=== PATIENT | female | born 1990 | race Caucasian/White ===

== ENCOUNTER 2017-09-22 08:36 | Inpatient (IN) | payer MEDICAID, OTHER ==
[2017-09-22 10:29] VITALS: BMI 23.3
[2017-09-22] MEDS ORDERED: MAG HYDROX/AL HYDROX/SIMETH 30 ML CUP PO PRN (10:39)
[2017-09-22] MEDS ORDERED: ZIPRASIDONE 20 MG VIAL IM PRN (10:39)
[2017-09-22] MEDS ORDERED: ACETAMINOPHEN TAB 325 MG TAB PO PRN (10:39)
[2017-09-22] MEDS ORDERED: MAGNESIUM HYDROXIDE 2,400 MG/10 ML CUP PO PRN (10:39)
[2017-09-22] MEDS: SERTRALINE 100 MG TAB PO SCH (13:30)
[2017-09-22] MEDS: LORazepam 1 MG TAB PO PRN ×2 (13:31→13:46)
[2017-09-22] MEDS: ARIPiprazole 2 MG TAB PO SCH (13:46)
--- NOTE | 2017-09-22 13:56 | HP ---
HISTORY AND PHYSICAL DATE OF SERVICE: 09/22/2017 IDENTIFYING DATA: This patient is a 27-year-old female who was admitted to us from [facility] on a petition due to a recent suicide attempt. HISTORY OF PRESENT ILLNESS: The patient presents with a petition stating "I wanna . I cut my throat to . History of depression, noncompliance with treatment." The patient states that she cut her neck with a knife in front of her mother, brother and 10-year-old nephew. She felt overwhelmed and cut herself after she had taken 2 shots of vodka and snorted a Klonopin tablet. She has been feeling depressed and overwhelmed. She feels hopeless. She reports sleep has been stable with use of trazodone. Appetite has been stable. Energy level has been low. She states that she has been unable to hold a job because of transportation issues and she also feels overwhelmed when she works. She was involved in a relationship with a 19-year-old female for just a few weeks. The patient does identify herself as being homosexual. The 19-year-old female then met a male online and he came and picked her up. The patient is overwhelmed with the termination of that relationship. She describes having panic attacks when she goes out in public. She describes those as experiences where she feels short of breath, dizzy, sweating. She has visual changes and her heart is racing. She does not describe any excessive constant anxiety on a daily basis. She endorses no hypomanic or manic episode history. She is reporting no auditory or visual hallucinations or specific delusions. She resides with her mother and brother and states that there are no firearms at home. PAST PSYCHIATRIC HISTORY: This is the patient's third inpatient psychiatric admission. She had been to [facility]. She has been on this unit in January of 2016 under the care of Dr. Rai. She reports this is her first suicide attempt, but she does have a history of self- injurious behavior where she will poke her skin on her legs with a needle. She is currently prescribed Zoloft 50 mg daily, trazodone 100 mg at bedtime, Adderall [address] Pugh, her primary care physician. She has a history of being prescribed Wellbutrin, BuSpar and Prozac. She does not work with an outpatient therapist or psychiatrist. She states she has never followed up with one after her admissions. When she was here last in the mental health unit she did go to rehab, but there was no followup afterwards. PAST MEDICAL HISTORY: None reported. ALLERGIES: IBUPROFEN. CHEMICAL DEPENDENCY HISTORY: She reports using alcohol daily, having 1 to 2 drinks, marijuana is every other day. Cocaine she reports is too expensive to use regularly and she has not used that since February. She buys Klonopin off the street, but states that she uses it less than monthly. She has history of abusing Adderall. She states that she is not currently overusing her prescribed Adderall. She has been to inpatient chemical dependency treatment once after her admission here in 2016. She states her drugs of choice are equally Klonopin, marijuana, alcohol and cocaine. FAMILY PSYCHIATRIC HISTORY: None reported. Previous documentation suggests that her father had PTSD. He did in 2016 of a suspected overdose. FAMILY CHEMICAL DEPENDENCY HISTORY: Unclear. SOCIAL HISTORY: The patient is 27 years old. She is born and raised in [place]. She reports her childhood was good. She identifies herself as homosexual and is single. There was a recent relationship break-up as noted above. She has no children. She resides with her mother and brother. She has no income and is unemployed. No history of experience. She has a total of 3 half-brothers and 1 half-sister. She denies having any legal history. She denies any abuse history. MENTAL STATUS EXAM: The patient is a thin female, appearing her stated age. She is dressed in hospital attire. She has a laceration on the anterior aspect of her neck, across the midline which has approximately 3 sutures. 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 She reports a depressed mood. She feels overwhelmed. She feels hopeless. She is tearful throughout the session. She describes feelings of anxiety out in public. She is reporting no homicidal ideation, intent, or plan. She is endorsing no auditory or visual hallucinations or specific delusions. Thought process is linear. She demonstrates no tangential thinking, loose associations or flight of ideas. She does not appear hypomanic or manic. She demonstrates no verbal or physical aggressiveness. She demonstrates no abnormal involuntary movements. Insight and judgment are limited. She is oriented to person, place, and date. She is able to spell world backwards. STRENGTHS: Housing, willingness to receive voluntary treatment. WEAKNESSES: Unemployment, termination of recent relationship, intellect average. IMPRESSION: 1. Major depressive disorder, recurrent, severe, without psychosis with history of panic attacks, history of polysubstance use disorder including marijuana, Klonopin, cocaine and alcohol. 2. Rule out Cluster B traits. 3. Sutured laceration on her anterior neck across midline. PLAN: The patient has been admitted to the mental health unit. She is willing to sign in voluntarily. We reviewed her presenting symptoms and medication options. We decided to continue the Zoloft but we will titrate to 100 mg daily, trying to make it more efficacious. We will augment with Abilify 2 mg daily as she appears to be struggling with severe symptoms of depression. We discussed the potential benefits and risks of her medications and specifically Abilify including risk of weight gain, metabolic syndrome and movement disorder symptoms. She will continue on trazodone 100 mg at bedtime. We will monitor her vitals for any signs of withdrawal. Ativan is available if needed. She will be seen by the liner machine operator helper for routine history and physical exam. Social Work will meet with the patient to complete a psychosocial assessment. We will monitor her for safety and encourage her participation in the milieu. We will involve her family in treatment and discharge planning as she will allow. GRABIEL / JORDANA: [id number] /
[2017-09-22] MEDS: traZODone HCL 100 MG TAB PO SCH (20:16)
[2017-09-22] MEDS: BACITRACIN 500 UNIT/GM OINT 28.4 GM TUBE TOPICAL SCH (22:22)
[2017-09-22] MEDS: CEPHALEXIN 250 MG CAP PO SCH (22:22)
[2017-09-22] MEDS: NICOTINE 21MG/24HR PATCH TRANSDERM SCH ×2 (22:23→23:05)
--- NOTE | 2017-09-23 00:52 | CONS ---
CONSULTATION DATE OF CONSULTATION: September 22, 2017. REASON FOR CONSULTATION: Medical management requested by Dr. Palmer. CONSULTATION: This is a 27-year-old patient who was transferred to the psychiatry unit at [facility] from [facility] on a petition due to suicide attempt. The patient stated "I wanna , I cut my throat to ". The patient has a history of depression, noncompliant. Patient was in a relationship with an on journeyman lineman and the patient has trouble dealing with herself regarding her mendes orientation. She cut superficially in neck with a knife in front of her mother, brother and 10-year-old nephew. She was feeling overwhelmed and she had taken 2 shots of vodka and noted Klonopin. During my interview, she repeatedly cries. The patient has been tolerating a diet. The patient is not employed. She a couple of times quotes out of the Bible. REVIEW OF SYSTEM: Review of systems constitutional none. HEENT none. Respiratory none. Cardiovascular none. Gastrointestinal none. Genitourinary none. Musculoskeletal: None. Dermatological: There is dried up blood in the neck. Psychiatry as above. Neurological none. PAST MEDICAL HISTORY: Depression, anxiety, recreational drug use. SOCIAL HISTORY: Smokes a pack a day for 3 weeks and drinks beer about 3 times a week. Lives with mother and brother. Not employed. FAMILY HISTORY: Reviewed, noncontributory to presentation. SOCIAL HISTORY: Father probably had PTSD. HOME MEDICATIONS: 1. Dextroamphetamine 30 mg daily. 2. Zoloft 50 mg daily. 3. Desyrel 100 mg q.h.s. ALLERGIES: IBUPROFEN. EXAMINATION: Temp 97.8, pulse 74, respiratory 20, blood pressure 107/45, pulse ox . GENERAL APPEARANCE: Sitting up, anxious. Eyes: Pupils equal. Conjunctivae normal. HEENT external appearance of nose and ears normal. Oral cavity normal. Neck: The patient has a scar with some light dried up blood, crusted. Respiratory effort normal. Lungs are clear. Cardiovascular 1st and 2nd sounds normal. No edema. ABDOMEN: Soft, nontender. Liver and spleen not palpable. Lymphatics: No lymph nodes palpable in the neck and axillae. PSYCHIATRY: Alert and oriented x3. Mood and affect anxious appearing and tearful. INVESTIGATIONS: None from here. ASSESSMENT: 1. Incision superficial incision pricilla on the neck with dry crusted blood. We will use Bacitracin cream on it 3 times a day. 2. Chronic nicotine dependence. Patient is a cigarette smoker. 3. Recreational marijuana use. 4. Major depressive disorder, recurrent, severe, without psychosis. 5. History of panic attack. PLAN: At this point, we will use Keflex for a week, use also Bacitracin on the neck. Given a nicotine patch. I spoke to the patient. Patient should follow up with Dr. Pugh upon discharge. Thank you Dr. Tapia. MMAMANDOL / IJN: [id number] /
[2017-09-23 08:21] LABS: ALT 18 U/L (9-52); AST 16 U/L (14-36); Albumin 3.6 g/dL (3.5-5.0); Alkaline Phosphatase 58 U/L (38-126); Anion Gap 9 mmol/L; Blood Urea Nitrogen 14 mg/dL (7-17); Calcium 9.2 mg/dL (8.4-10.2); Carbon Dioxide 27 mmol/L (22-30); Chloride 104 mmol/L (98-107); Glucose 90 mg/dL (74-99); Sodium 140 mmol/L (137-145); Total Bilirubin 0.2 mg/dL (0.2-1.3); Total Protein 6.2 g/dL (6.3-8.2)
[2017-09-23] MEDS: BACITRACIN 500 UNIT/GM OINT 28.4 GM TUBE TOPICAL SCH ×2 (09:18→20:51)
[2017-09-23] MEDS: ARIPiprazole 2 MG TAB PO SCH (09:18)
[2017-09-23] MEDS: NICOTINE 21MG/24HR PATCH TRANSDERM SCH (09:19)
[2017-09-23] MEDS: CEPHALEXIN 250 MG CAP PO SCH ×3 (09:19→20:50)
[2017-09-23] MEDS: SERTRALINE 100 MG TAB PO SCH (09:20)
--- NOTE | 2017-09-23 10:14 | P.PN ---
Progress Note - Text Interval history: The patient is found in her room she follows me to an interview room. She states that she spoke with her mother via phone last night and was told she could not return there. The patient is more distraught as now she is homeless. She has no income and is asking about housing options. She has no questions regarding her medications we discussed those in detail again. We discussed that it is more therapeutic for her to attend groups today rather than staying in her dark room lying in bed. Mental status exam: The patient is alert she is dressed in her own clothing. She has a bandage on her anterior neck covering her laceration wound. Hygiene and grooming are adequate. She endorses a depressed mood she feels hopeless. She is briefly tearful during the session. She endorses no homicidal ideation she endorses no auditory or visual hallucinations or specific delusions she demonstrates no abnormal involuntary movements she demonstrates no verbal or physical aggressiveness. Insight and judgment impaired. She is oriented to person place and date. Other than the brief tearfulness she maintains a bland affect. Speech is fluent not very spontaneous she does provide answers to questions asked. Plan: The patient's will continue on her current medication. She is encouraged to stay out of her room during the day and participate in group. We will monitor her for safety. Vital signs reviewed.
[2017-09-23] MEDS: LORazepam 1 MG TAB PO PRN (14:22)
[2017-09-23] MEDS: traZODone HCL 100 MG TAB PO SCH (20:50)
[2017-09-24] MEDS: BACITRACIN 500 UNIT/GM OINT 28.4 GM TUBE TOPICAL SCH ×2 (09:00→20:17)
[2017-09-24] MEDS: NICOTINE 21MG/24HR PATCH TRANSDERM SCH (09:00)
[2017-09-24] MEDS: SERTRALINE 100 MG TAB PO SCH (09:00)
[2017-09-24] MEDS: ARIPiprazole 2 MG TAB PO SCH (09:00)
[2017-09-24] MEDS: CEPHALEXIN 250 MG CAP PO SCH ×3 (09:00→20:17)
--- NOTE | 2017-09-24 13:27 | P.PN ---
Progress Note - Text Progress Note Date: 09/24/17 Interval History: Patient is a 27-year-old female who was transferred from the [facility] after she attempted suicide by cutting her neck with a knife which required suturing. Patient states at that time she had been drinking alcohol as well as had snorted Klonopin. Patient states that her relationship ended several days prior to her admission and she was feeling hopeless and depressed states that her relationship with her mother with whom she lives as not good. Patient states that she's not been able to work and is losing jobs because she does not show up due to transportation issues. Patient states that she's been using alcohol, marijuana and benzodiazepines. Patient states that today she is feeling more hopeful and wants to attend rehab and is hopeful to get into a three-quarter house after discharge. She states that she does not want to return to live with her mother as that is not a good situation. Patient reported no further suicidal ideation and states that she has been sleeping and eating well. Patient states that she is not having any side effects from the medications. Mental Status: Appearance/Attitude: Patient was appropriately dressed, made good eye contact and was cooperative. Behavior: Patient did not display any psychomotor agitation or retardation. Speech/Language: Patient was spontaneous, speech was of normal volume and rhythm and she was coherent. Thought Process: Patient was goal-directed and there is no evidence of loose associations or flight of ideas. Thought Content: Patient denied any auditory or visual hallucinations and no delusions or paranoid ideation were elicited. Patient reported that she is feeling more hopeful about the future and wants to attend inpatient rehab after discharge from the hospital. She states that she is no longer having suicidal ideation. Patient reported that her sleep and appetite have improved. Suicidal/Homicidal Ideation: Patient denies any current suicidal or homicidal ideation. Sensorium/Cognition: Patient is alert and oriented to person, place, and time and her recent and remote memory were grossly intact. Mood/Affect: Patient's mood is less depressed and her affect remains slightly blunted. Insight/Judgment: Patient's insight and judgment are fair. Assessment: Patient reports that she is feeling more hopeful and less depressed since being here and no longer reports any suicidal ideation. Her sleep and appetite have also improved. Patient states she is not having any current side effects from the medication and states that she is interested in following up with inpatient rehab. Patient reports that she has been attending groups and finds them helpful. Plan: Patient will continue on Zoloft 100 mg to target her depression and anxiety and Abilify 2 mg to target her depression as an augmentation strategy. Patient also continues on trazodone 100 mg at bedtime to target her sleep. Patient has contacted rehab for an intake appointment was encouraged to follow- up with this. We'll continue to assess the patient's response to the increase in Zoloft and the addition of Abilify on her symptoms of depression. Patient continues to require hospitalization to further stabilize her mood.
[2017-09-24] MEDS: LORazepam 1 MG TAB PO PRN ×2 (14:48→21:39)
[2017-09-24] MEDS: traZODone HCL 100 MG TAB PO SCH (20:17)
[2017-09-25] MEDS: NICOTINE 21MG/24HR PATCH TRANSDERM SCH (08:51)
[2017-09-25] MEDS: ARIPiprazole 2 MG TAB PO SCH (08:52)
[2017-09-25] MEDS: SERTRALINE 100 MG TAB PO SCH (08:52)
[2017-09-25] MEDS: CEPHALEXIN 250 MG CAP PO SCH ×3 (08:52→20:29)
[2017-09-25] MEDS: BACITRACIN 500 UNIT/GM OINT 28.4 GM TUBE TOPICAL SCH ×2 (08:52→20:29)
[2017-09-25] MEDS: LORazepam 1 MG TAB PO PRN ×2 (11:00→20:31)
--- NOTE | 2017-09-25 17:59 | P.PN ---
Progress Note - Text Progress Note Date: 09/25/17 Interval History: Patient is a 27-year-old female who was seen today and states that she contacted [facility] and has an intake appointment on October 06. She reports that she is not feeling as hopeless as she was and is no longer feeling suicidal. She states that she is more social but continues to have periods of irritability and restlessness as well as still feeling depressed. Patient reports that she is sleeping okay and her appetite is good. Patient reported no side effects from the medication. Patient states that she is contacted her family to discuss staying at home until her intake on October 06. Mental Status: Appearance/Attitude: Patient was neatly and appropriately dressed , made good eye contact and was cooperative. Behavior: Patient displayed no psychomotor agitation or retardation. Speech/Language: Patient's speech was spontaneous and of normal volume and rhythm and she was coherent. Thought Process: Patient was goal-directed and there is no evidence of loose associations or flight of ideas Thought Content: Patient denied any auditory or visual hallucinations and no paranoid or delusional ideation was elicited. Patient reported no longer feeling hopeless and states that she has. Of restlessness and irritability as well as still feeling depressed at times. She states she is more social here. She reports that she is sleeping and eating well. Suicidal/Homicidal Ideation: Patient denied any current suicidal or homicidal ideation. Sensorium/Cognition: Patient is alert and oriented to person, place, and time and her recent and remote memory are grossly intact. Mood/Affect: Patient's mood remains slightly depressed and her affect is law Insight/Judgment: Patient's insight and judgment are intact. Assessment: Patient reports feeling less hopeless in the longer feeling suicidal with the changes to her medications however she reports still feeling restless and irritable at times as well as depressed. Patient states that she is sleeping well and her appetite has improved. Patient has contacted [facility] and has an intake appointment on the of this month. Patient states she is more social on the unit. Patient reported no side effects from the medication. Patient has been attending and participating in groups and activities. Plan: Patient will continue on Zoloft 100 mg daily, Abilify 2 mg daily and trazodone 100 mg at bedtime to target her depression. Patient has set up an intake on October 06 at [facility] and she and I discussed possible discharge later this week and she was agreeable with this and is attempting to set up housing after discharge until she goes to [facility].
[2017-09-25] MEDS: traZODone HCL 100 MG TAB PO SCH (20:31)
[2017-09-26] MEDS: SERTRALINE 100 MG TAB PO SCH (08:46)
[2017-09-26] MEDS: ARIPiprazole 2 MG TAB PO SCH (08:46)
[2017-09-26] MEDS: NICOTINE 21MG/24HR PATCH TRANSDERM SCH (08:46)
[2017-09-26] MEDS: BACITRACIN 500 UNIT/GM OINT 28.4 GM TUBE TOPICAL SCH ×2 (08:46→19:59)
[2017-09-26] MEDS: CEPHALEXIN 250 MG CAP PO SCH ×3 (08:46→21:04)
[2017-09-26] MEDS: LORazepam 1 MG TAB PO PRN ×2 (12:12→19:59)
--- NOTE | 2017-09-26 16:09 | P.PN ---
Progress Note - Text Progress Note Date: 09/26/17 Interval History: Patient is a 27-year-old female who was seen today and she reports that she has spoken with her mother and she stated that she could return home to live with her until she enters [facility] on October 05. Patient states she is more hopeful with this and is no longer feeling as overwhelmed. Patient reports that she slept okay last evening and states that she is having any suicidal thoughts. Patient reports that her mood is more stable and she is feeling less depressed. Patient's discussed that she had been hurt in a relationship and had been arguing with her family and had been using Klonopin and alcohol and states that this is what was occurring prior to her admission. Mental Status: Appearance/Attitude: Patient is appropriately dressed, makes good eye contact and is cooperative. Behavior: Patient did not display any psychomotor agitation or retardation. Speech/Language: Patient's speech is spontaneous and of normal volume and rhythm and she is coherent. Thought Process: Patient was goal-directed without evidence of loose associations or flight of ideas. Thought Content: Patient denied any auditory or visual hallucinations and no delusions or paranoid ideation were elicited. Patient reports her sleep is still fair, her appetite is good. She states that she is more hopeful and not feeling overwhelmed. She is relieved that her mother will allow her to stay at home until she enters [facility] on October 05. Suicidal/Homicidal Ideation: Patient denies any current suicidal or homicidal ideation. Sensorium/Cognition: patient is alert and oriented to person, place, and time. Recent and remote memory are grossly intact. Mood/Affect: patient's mood is pleasant and she is hopeful and her affect is appropriate. Insight/Judgment: patient's insight and judgment are fair. Assessment: patient reports that she is feeling more hopeful and not as overwhelmed. She states that she was hurt in a relationship prior to admission was arguing with her family and used alcohol and snorted Klonopin and this is when she made the suicide attempt. She states that she is no longer feeling suicidal and states she feels her depression is improving. Patient reported no side effects from the medication but stated her sleep was still not restful. Plan: Patient will continue on Zoloft 100 mg daily and Abilify 2 mg daily to target her depression will increase her trazodone to 150 mg to improve her sleep at night. Patient and I discussed discharge on she was agreeable with this stating that she can return to live with her mother until she enters [facility] on October 05. Patient discussed that she sees the need to avoid using any alcohol or drugs.
[2017-09-26] MEDS ORDERED: traZODone HCL 50 MG TAB PO SCH (21:00)
[2017-09-27 05:05] VITALS: RESP 16; TEMP 97.7
[2017-09-27] MEDS: NICOTINE 21MG/24HR PATCH TRANSDERM SCH (08:34)
[2017-09-27] MEDS: ARIPiprazole 2 MG TAB PO SCH (08:35)
[2017-09-27] MEDS: CEPHALEXIN 250 MG CAP PO SCH (08:35)
[2017-09-27] MEDS: BACITRACIN 500 UNIT/GM OINT 28.4 GM TUBE TOPICAL SCH (08:35)
[2017-09-27] MEDS: SERTRALINE 100 MG TAB PO SCH (08:35)
[2017-09-27] MEDS: LORazepam 1 MG TAB PO PRN (08:36)
[2017-09-27 08:42] VITALS: BP 123/59; PULSE 115
--- NOTE | 2017-09-27 11:57 | P.DS ---
Providers Date of admission: 09/22/17 09:31 Expected date of discharge: 09/27/17 Attending physician: Blanca Melara MD Consults: 09/22/17 10:39 Consult Physician Routine Consulting Provider: Herrera Mejias Consult Reason/Comments: H and P Do you want consulting provider notified?: Yes Primary care physician: Michi Pugh Hospital Course: Discharge Diagnosis: Major depressive disorder, recurrent, severe without psychotic features; alcohol use disorder, mild, marijuana use disorder, mild, benzodiazepine use disorder, mild Laceration of her anterior neck with sutures Reason for Admission: Patient is a 27-year-old female who was admitted after she had cut her throat, which required suturing. Patient presented stating that she wanted to due to feeling overwhelmed. Patient states that she had been using alcohol on and snorted Klonopin prior to this due to being calming her in a relationship and difficulties with her family. She states that she felt overwhelmed and hopeless. She states that she's been unable to work because she's had transportation issues but then when she is working feels overwhelmed. Patient states that she has been admitted 3 times in the past and has not followed up with outpatient recommendations. Patient has no prior suicide attempt history and she has been to rehab but there was no follow-up after discharge. Patient has been using alcohol 1-2 drinks a day, marijuana daily or every other day and using Klonopin which she purchases off the street. Patient is also prescribed Adderall and states that she has not been abusing her current prescriptions. Hospital Course: Patient was admitted on a voluntary basis, routine laboratory studies and a medical consultation was obtained. Patient was placed on routine observation and group and activity therapy were ordered. Patient had been on Zoloft 50 mg a day and admits was increased to 100 mg a day to target her depression and anxiety. Patient was maintained on trazodone 100 mg which she states it been helpful for her sleep and was placed on Abilify 2 mg daily to augment the antidepressant. Patient was attending groups and activities and participating in them. Patient reported that she was improving and no longer feeling as overwhelmed and less depressed. Patient states she slowly was more social on the unit and denied having any suicidal ideation. Patient arranged rehab follow-up at [facility] and states that she is looking forward to going there and following up afterwards. Patient was able to verbalize that she sees the drug and alcohol use has only created more problems for her. Patient continued to improve on the unit but reported her sleep was not as restful and her trazodone was increased to 150 mg and she reported good sleep area and patient was placed on Keflex 250 mg 3 times a day for her laceration as well as bacitracin being applied twice a day. Patient's wound was healing well and the patient was ready for discharge. Allergies ibuprofen Allergy (Verified 09/22/17 09:51) Unknown Lab Results 09/23/17 Range/Units 07:21 Sodium 140 (137-145) mmol/L Potassium 4.0 (3.5-5.1) mmol/L Chloride 104 (98-107) mmol/L Carbon Dioxide 27 (22-30) mmol/L Anion Gap 9 mmol/L BUN 14 (7-17) mg/dL Creatinine 0.65 (0.52-1.04) mg/dL Est GFR (MDRD) Af Amer >60 (>60 ml/min/1.73 sqM) Est GFR (MDRD) Non-Af >60 (>60 ml/min/1.73 sqM) Glucose 90 (74-99) mg/dL Calcium 9.2 (8.4-10.2) mg/dL Total Bilirubin 0.2 (0.2-1.3) mg/dL AST 16 (14-36) U/L ALT 18 (9-52) U/L Alkaline Phosphatase 58 (38-126) U/L Total Protein 6.2 L (6.3-8.2) g/dL Albumin 3.6 (3.5-5.0) g/dL TSH 2.750 (0.465-4.680) mIU/L Discharge Mental Status: Appearance/Attitude: Patient is neatly and appropriately dressed, makes good eye contact and is cooperative. Behavior: Patient does not display any psychomotor agitation or retardation. Speech/Language: Patient's speech is spontaneous and of normal volume and rhythm and she is coherent. Thought Process: Patient is goal-directed and there is no evidence of loose associations or flight of ideas. Thought Content: Patient denies any auditory or visual hallucinations and no delusions or paranoid ideation were elicited. Patient reports she is no longer feeling overwhelmed or hopeless and states that she is hopeful about going to [facility]. Patient states that her sleep has improved and she feels rested and her appetite is good. Suicidal/Homicidal Ideation: Patient denies any current suicidal or homicidal ideation. Sensorium/Cognition: Patient is alert and oriented to person, place, time and her recent and remote memory are grossly intact. Mood/Affect: Patient's mood is pleasant and her affect is appropriate. Patient states she has been more social on the unit and denied having any anxiety when attending groups Insight/Judgment: Patient's insight and judgment are intact. Risk Assessment: Patient's risk for self-harm is low should she remain compliant , avoid alcohol and drugs Discharge Plan: Patient will be discharged to return to live with her mother until her intake at [facility] on October 05. Patient will continue on Zoloft 100 mg daily, trazodone 150 mg at bedtime and Abilify 2 mg daily. She will complete her course of Keflex with 250 mg 3 times a day for 3 days and will continue to apply bacitracin to her laceration twice a day. Patient will follow-up with either her PCP or urgent care in 3-4 days to have the sutures removed. Patient was advised to avoid any alcohol or drugs, patient states that she is going to restart her Adderall on discharge. Patient Condition at Discharge: Stable Plan - Discharge Summary Discharge Rx Participant: No New Discharge Prescriptions: New ARIPiprazole [Abilify] 2 mg PO DAILY #14 tab Bacitracin Oint 1 applic TOPICAL BID applic Cephalexin [Keflex] 250 mg PO TID #10 cap Sertraline [Zoloft] 100 mg PO DAILY #14 tab traZODone HCL 150 mg PO HS #14 tablet Continue Dextroamphetamine/Amphetamine [Dextroamp-Amphetamin 30 mg Tab] 30 mg PO DAILY Discontinued traZODone HCL [Desyrel] 100 mg PO HS #30 tab Sertraline [Zoloft] 50 mg PO DAILY Discharge Medication List Dextroamphetamine/Amphetamine [Dextroamp-Amphetamin 30 mg Tab] 30 mg PO DAILY [History] ARIPiprazole [Abilify] 2 mg PO DAILY #14 tab 09/27/17 [Rx] Bacitracin Oint 1 applic TOPICAL BID applic 09/27/17 [Rx] Cephalexin [Keflex] 250 mg PO TID #10 cap 09/27/17 [Rx] Sertraline [Zoloft] 100 mg PO DAILY #14 tab 09/27/17 [Rx] traZODone HCL 150 mg PO HS #14 tablet 09/27/17 [Rx] Follow up Appointment(s)/Referral(s): [facility] [Outside] - 10/05/17 9:45 am (10/05/17 at 945 ) Discharge Disposition: HOME SELF-CARE
== END 2017-09-27 14:01 | disposition home or self-care (01) | DRG 885 ==
LOC: 3MHU 09:31
PROVIDERS: ADMIT Psychiatry & Neurology Psychiatry; ATTEND Psychiatry & Neurology Psychiatry
DX: F33.2 Major depressive disorder, recurrent severe without psychotic features (principal); Z91.19 Patient's noncompliance with other medical treatment and regimen; F10.10 Alcohol abuse, uncomplicated; F12.10 Cannabis abuse, uncomplicated; F17.210 Nicotine dependence, cigarettes, uncomplicated; F41.0 Panic disorder [episodic paroxysmal anxiety]; Z91.5 Personal history of self-harm; F13.10 Sedative, hypnotic or anxiolytic abuse, uncomplicated; Z79.899 Other long term (current) drug therapy; Z59.0 Homelessness
CPT/HCPCS: 80053; 84443